=== PATIENT | female | born 2000 | race Caucasian/White ===

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

== ENCOUNTER → 2023-06-27 | Outpatient (REF) | payer BC ==
[2023-06-27 18:00] LABS: ALKALINE PHOSPHATASE 69 U/L (46-116); ALT/SGPT < 9 U/L (7.0-40); AST/SGOT 9 U/L (<34); BILIRUBIN,TOTAL 0.3 MG/DL (0.3-1.2); BLOOD UREA NITROGEN 15 MG/DL (9-23); CALCIUM LEVEL 9.2 MG/DL (8.5-10.1); CARBON DIOXIDE LEVEL 26 MMOL/L (20-31); CHLORIDE LEVEL 106 MMOL/L (98-107); CREATININE FOR GFR 0.67 MG/DL (0.55-1.30); GLUCOSE, FASTING 88 MG/DL (60-100); POTASSIUM SERUM 3.9 MMOL/L (3.5-5.1); SODIUM LEVEL 140 MMOL/L (136-145); TOTAL PROTEIN 7.2 G/DL (5.7-8.2)
[2023-06-27 18:01] LABS: THYROID STIMULATING HORMONE 2.967 uIU/ML (0.48-4.17); TOTAL 25(OH) VITAMIN D 34.6 NG/ML (20.0-100.0)
== END ==
LOC: M LAB REF 17:27
PROVIDERS: ATTEND Nurse Practitioner Family
DX: E66.9 Obesity, unspecified (principal)